=== PATIENT | female | born 1990 | race American Indian/Alaskan Native ===

== ENCOUNTER 2016-08-24 00:23 | Emergency (ER) | payer SELFPAY ==
[2016-08-24] MEDS ORDERED: PEPCID IV ONE ×2 (01:35→02:04)
[2016-08-24] MEDS ORDERED: BENADRYL IV ONE (02:03)
--- NOTE | 2016-08-24 05:19 | Emergency Department Report ---
HPI - General Chief Complaint: Allergic Reaction Time Seen by Provider: 08/24/16 05:14 - HPI HPI: Patient is a 26-year-old female presents to ED complaining of having an allergic reaction. 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 Patient states she does not recall contact concept of anything she is allergic to. She denies fevers/chills/nausea/vomiting / shortness of breath/chest pain/ difficulty breathing ED Past Medical Hx - Past Medical History Previous Medical History?: No - Surgical History Past Surgical History?: No - Social History Smoking Status: Current Every Day Smoker Substance Use Type: None - Medications Home Medications: Home Medications Medication Instructions Recorded Confirmed Last Taken Type Ibuprofen [Motrin] 600 mg PO Q8H PRN #20 tablet 03/30/14 Unknown Rx methOCARBAMOL [Robaxin] 500 mg PO BID #10 tab 03/30/14 Unknown Rx traMADol [Ultram] 50 mg PO Q6HR PRN #14 tablet 03/30/14 Unknown Rx EPINEPHrine [Epipen 2-Kevin] 0.3 mg IM PRN #1 pack 08/24/16 Unknown Rx hydrOXYzine HCL [Atarax] 25 mg PO QHS #20 tablet 08/24/16 Unknown Rx predniSONE [Deltasone] 20 mg PO QDAY #4 tab 08/24/16 Unknown Rx ED Review of Systems ROS: Stated complaint: POSS ALLERGIC REACTION/CHEST PAIN Other details as noted in HPI Constitutional: denies: chills, fever Eyes: denies: eye pain, eye discharge, vision change ENT: denies: ear pain, throat pain Respiratory: denies: cough, shortness of breath, wheezing Cardiovascular: denies: chest pain, palpitations Endocrine: no symptoms reported Gastrointestinal: denies: abdominal pain, nausea, diarrhea Genitourinary: denies: urgency, dysuria, discharge Musculoskeletal: denies: back pain, joint swelling, arthralgia Skin: denies: rash, lesions Neurological: denies: headache, weakness, paresthesias Psychiatric: denies: anxiety, depression Hematological/Lymphatic: denies: easy bleeding, easy bruising Physical Exam - Physical Exam Vital Signs: Vital Signs 08/24/16 01:47 Temperature 98.5 F Pulse Rate 78 Respiratory 16 Rate Blood Pressure 132/86 Blood Pressure 132/86 [Left] O2 Sat by Pulse 100 Oximetry Physical Exam: GENERAL: Alert and oriented x3, no apparent distress, Normal Gait, atraumatic. HEAD: Head is normocephalic and a-traumatic. EYES: Extra ocular muscles are intact. Pupils are equal, round, and reactive to light and accommodation. Bilateral upper conjunctiva mildly swollen. MOUTH:Mouth is well hydrated and without lesions. Tonsils nonerythematous or swollen, Uvula midline, Tongue not elevated. Mucous membranes are moist. Posterior pharynx clear, no exudate or lesions. Patent airways. NECK: Supple. Non edematous, No carotid bruits. No lymphadenopathy or thyromegaly. No C-spine tenderness LUNGS: Symetrical with respiration, No wheezing, no rales or crackles, CTAB. HEART: S1, S2 present, regular rate and rhythm without murmur, no rubs, no gallops. ABDOMEN: No organomegaly was noted,Positive bowel sounds, soft, and non- distended. . Nontender to palpation on all Quadrants, NO CVA tenderness. EXTREMITIES/MUSCULOSKELETAL: No cyanosis, clubbing, rash, lesions or edema. Full ROM bilaterally. UE Pulses 2+ bilaterally NEUROLOGIC: The patient is cooperative with no focal neurologic deficits. Cranial nerves II through XII are grossly intact. Normal speech. SKIN: Warm and dry, No lesions, No ulceration or induration present. ED Course Vital Signs 08/24/16 01:47 Temperature 98.5 F Pulse Rate 78 Respiratory 16 Rate Blood Pressure 132/86 Blood Pressure 132/86 [Left] O2 Sat by Pulse 100 Oximetry ED Medical Decision Making - Medical Decision Making 26-year-old female presents with allergic reaction. ED course: Solu-Medrol IM, Pepcid, Benadryl in triage. EKG was also performed in triage prior to my evaluation of this patient EKG: Normal sinus rhythm, normal EKG Patient reports feelingbetter when I examine patient. Discussed with patient need for EpiPen in case of acute angioedema or allergic reaction Discussed with patient to follow up with primary care physician. Discussed if worsening symptoms to return to ED Varus signs are stable patient is in acute distress Patient says instructions given Critical care attestation.: If time is entered above; I have spent that time in minutes in the direct care of this critically ill patient, excluding procedure time. ED Disposition Clinical Impression: Allergic angioedema Qualifiers: Encounter type: initial encounter Qualified Code(s): T78.3XXA - Angioneurotic edema, initial encounter Disposition: DISCHARGED TO HOME OR SELFCARE Is pt being admited?: No Does the pt Need Aspirin: No Condition: Stable Instructions: Anaphylaxis (ED), Allergies (ED) Prescriptions: hydrOXYzine HCL [Atarax] 25 mg PO QHS #20 tablet EPINEPHrine [Epipen 2-Kevin] 0.3 mg IM PRN #1 pack predniSONE [Deltasone] 20 mg PO QDAY #4 tab Referrals: PRIMARY CARE,MD [Primary Care Provider] - 3-5 Days [facility] [Outside] - 3-5 Days [facility] [Outside] - 3-5 Days Forms: Accompanied Note, Work/School Release Form(ED) Time of Disposition: 05:24
[2016-08-24 06:43] VITALS: BP 110/71
== END 2016-08-24 06:00 | disposition home or self-care (01) ==
LOC: ED 00:23
DX: T78.3XXA Angioneurotic edema, initial encounter (principal); F17.200 Nicotine dependence, unspecified, uncomplicated; Y92.9 Unspecified place or not applicable
CPT/HCPCS: 93005; 93010; 96374; 96375; 99283; J1200; J2930